=== PATIENT | female | born 1985 | race Caucasian/White ===

== ENCOUNTER 2024-10-08 15:23 | Outpatient (CLI) | payer OTHER, SELFPAY ==
--- NOTE | ~2024-10-08 | US_ITS ---
EXAMINATION: US pelvic complete DATE: 10/08/2024 15:47 INDICATION: Abnormal uterine bleeding. TECHNIQUE: Multiple transabdominal sonographic images of the pelvis were obtained. COMPARISON: None. FINDINGS: The uterus measures 10.3 x 3.6 x 5.4 cm. There is no free fluid in the pelvis. The endometrial comple x measures 6 mm in thickness. The right ovary measures 3.5 x 2.5 x 3.0 cm. The left ovary measures 3. 4 x 2.6 x 2.5 cm. There is normal vascular flow in the ovaries. IMPRESSION: 1. Normal pelvis. Reviewed, dictated and finalized at location A. [employer] IMPRESSION: 1. Normal pelvis.
== END 2024-10-08 15:24 | disposition home or self-care (01) ==
LOC: MICIMG 15:24
PROVIDERS: PCP Nurse Practitioner Women's Health; Visit Provider Nurse Practitioner Women's Health
DX: N93.8 Other specified abnormal uterine and vaginal bleeding (principal)
CPT/HCPCS: 76856